=== PATIENT | male | born 1955 | race Hispanic/Latino ===

== ENCOUNTER 2019-05-15 | Emergency (ER) | payer OTHER ==
[~2019-05-15] MED LIST: FLONASE NASAL50 MCG; IBUPROFEN600 MG PO; ZYRTEC-D AL1 OR
[2019-05-15] MEDS ORDERED: KEFLEX500 M1 PO (13:50)
== END 2019-05-15 14:15 | disposition home or self-care (01) | DRG 605 ==
PROC: 0HQFXZZ Repair Right Hand Skin, External Approach (ICD-10-PCS; principal; 2019-05-15)
DX: S61.214A Laceration without foreign body of right ring finger without damage to nail, initial encounter (principal); W29.3XXA Contact with powered garden and outdoor hand tools and machinery, initial encounter; Y93.H2 Activity, gardening and landscaping; Y92.89 Other specified places as the place of occurrence of the external cause; Y99.0 Civilian activity done for income or pay

== ENCOUNTER 2019-05-30 | Emergency (ER) | payer OTHER ==
[~2019-05-30] MED LIST changes: +KEFLEX500 M1 PO
== END 2019-05-30 09:50 | disposition home or self-care (01) | DRG 950 ==
DX: S61.411D Laceration without foreign body of right hand, subsequent encounter (principal); X58.XXXD Exposure to other specified factors, subsequent encounter